=== PATIENT | female | born 1985 | race American Indian/Alaskan Native ===

== ENCOUNTER 2017-09-26 11:38 | Emergency (ER) | payer OTHER ==
[2017-09-26 17:24] VITALS: BP 107/62; PULSE 92; RESP 18; TEMP 98.4; O2SAT 97
== END 2017-09-26 13:03 | disposition home or self-care (01) ==
LOC: C.EROB 11:38
DX: O26.892 Other specified pregnancy related conditions, second trimester (principal); R06.02 Shortness of breath; Z3A.24 24 weeks gestation of pregnancy

== ENCOUNTER 2017-11-21 18:59 | Emergency (ER) | payer OTHER ==
[2017-11-21 19:39] VITALS: BMI 29.2
[2017-11-21] MEDS ORDERED: Lactated Ringer's 1,000 ML IV ONE (19:39)
[2017-11-21 20:20] LABS: SQUAMOUS EPITHIAL 16 /hpf (0-5); URINE AMORPHOUS SEDIMENT OCC /ul (<OCC); URINE BACTERIA FEW (<OCC); URINE BILIRUBIN NEGATIVE (NEGATIVE); URINE BLOOD NEGATIVE (NEGATIVE); URINE CLARITY Hazy (Clear); URINE COLOR Yellow (YELLOW); URINE GLUCOSE (UA) NORMAL (Normal); URINE LEUKOCYTE ESTERASE 1+ Leu/uL (Negative); URINE NITRATE NEGATIVE (NEGATIVE); URINE PROTEIN NEGATIVE (NEGATIVE)
[2017-11-21] MEDS ORDERED: ceFAZolin IV 2 gm in Dextrose 2 GM/50 ML BAG IVPB ONE (20:45)
[2017-11-21] MEDS ORDERED: ceFAZolin IV 2 gm in Dextrose 2 GM/50 ML BAG IVPB SCH (21:00)
[2017-11-22 03:05] VITALS: BP 114/59; PULSE 95; RESP 20; TEMP 97.3
== END 2017-11-21 22:20 | disposition home or self-care (01) ==
LOC: C.EROB 18:59
DX: O47.03 False labor before 37 completed weeks of gestation, third trimester (principal); Z3A.32 32 weeks gestation of pregnancy
CPT/HCPCS: 81001; 96365; 99283; J0690; J7120

== ENCOUNTER 2017-12-25 07:08 | Inpatient (IN) | payer OTHER ==
--- NOTE | 2017-12-25 07:35 | OBHP ---
Datetime: 11/21/2017 19:42 IP Adm Impression: , intrauterine ; No Active Labor IP Chief Complaint Other: Abdominal tightening; LBP IP Admit Plan: Observation/Evaluation Admit Comment, IP Provider: This is a patient of Dr. Margaret Marroquin 32 y.o. , LMP 04/07/17, SALAZAR 01/12/18, EGA 32w 4d, c/o abdominal tightening "like menstrual cram ps", pain scale 8/10 at time of onset 1830 hours. States no pain/tightening now. (+)AFM; denies LOF, VB. Lst had sexual intercourse 3 nights ago. Caree: Dr. Marroquin; no issues to date. last vis it 2 weeks ago; next visit 11/26/17 P Ob: 2007, , female, 7 lb; [facility] [place]. No complications P [employer] W[employer]: 11 x monthly x 4. No h/o STIs/ abnormal Pap/ fibroids/ ovarian cysts PMH: denies PSH: denies NKDA Meds: PNV - QD Soc Hx: denies tobacco, illicit drug or EtOH use. Lives with FOB; together x 16 years. Currently, works part-time, [employer] ([employer]) Fam Hx: Both mother and father - both, unk cancer (patient was 10 and 11 y.o. when they pa ssed) P.E.: as above. WD in NAD; jumps/ startled with movement. Awake, alert, oriented to time, p erson and place Assessment: 32 y.o. P1, 32w 4d, uterine contractions. R/O UTI. Presumptive BV. Category 1 tracin g. Clinically stable. Plan: 1) U/A 2) IVFs 3) Metronidazole 500 mg p.o. x 1 dose 4) Observe - as per, and discussed with, Dr. Marroquin Addendum: patient feels better after IVFs. Clinically stable. Plan: 1) Discharge home 2) Keflex 500 mg 1 tab by mouth TID x 7 days 3) MetroGel 0.75% 1 appl pV QHS x 5 days 4) Follow up Dr. Marroquin 11/24/17 4) Reviewed S/S PTL Pelvic Type - PN: Adequate Extremities - PN: Normal Abdomen - PN: Normal Back - PN: Normal Breast - PN: Not Done Lungs - PN: Normal Heart - PN: Normal Thyroid - PN: Not Done Neurologic - PN: Normal HEENT - PN: Normal General - PN: Normal Presentation-Admit: Vertex FHR - Baseline A Provider: 135 Contraction Comments Provider: irregular, 5 - 20 minutes Comments, ACOG Physical Exam: Abdomen: Gravid. Soft. Non tender in all quadrants. Fundal height 33 cm Perineum: dry: SSE: moderate amount of white pasty, pungent vaginal discharge. No pooling All other systems reviewed and are negative Gestation - Est Wks by US: 32w 4d EGA AdmitDate IP: 32.4 Vital Signs Provider: Reviewed; Within Normal Limits IP Chief Complaint: Other NICHD Variability Prov Fetus A: Moderate 6-25bpm NICHD Accel Fetus A IP Provider: 15X15 FHR Category Provider Fetus A: Category I NICHD Decel Fetus A IP Provider: None Dilatation, Provider: 1-2 Effacement, Provider: 20 Station, Provider: high Genitourinary Exam: Abnormal DTRs - PN: Normal
[2017-12-25] MEDS: Lactated Ringer's 1,000 ML IV SCH (08:15)
[2017-12-25 08:43] LABS: BASO % 0.3 % (0.0-2.0); EOS % 0.7 % (0.0-4.0); HEMOGLOBIN 11.5 g/dL (11.0-16.0); LYMPH # 0.9 K/uL (1.0-4.3); LYMPH % 20.7 % (20.0-40.0); MEAN CELL VOLUME 94.8 fL (81.0-99.0); MEAN CORPUSCULAR HEMOGLOBIN 31.8 pg (27.0-31.0); MEAN CORPUSCULAR HGB CONC 33.5 g/dL (33.0-37.0); MEAN PLATELET VOLUME 8.3 fL (7.2-11.7); MONO # 0.5 K/uL (0.0-0.8); NEUT # 2.8 K/uL (1.8-7.0); NEUT % 66.3 % (50.0-75.0); NRBC % 0.2 % (0.0-2.0); RBC 3.61 Mil/uL (3.80-5.20); RED CELL DISTRIBUTION WIDTH 14.1 % (11.5-14.5); WHITE BLOOD COUNT 4.2 K/uL (4.8-10.8)
[2017-12-25 08:52] LABS: SQUAMOUS EPITHIAL < 1 /hpf (0-5); URINE BILIRUBIN NEGATIVE (NEGATIVE); URINE BLOOD NEGATIVE (NEGATIVE); URINE CLARITY Clear (Clear); URINE COLOR Straw (YELLOW); URINE GLUCOSE (UA) NORMAL (Normal); URINE LEUKOCYTE ESTERASE NEG Leu/uL (Negative); URINE NITRATE NEGATIVE (NEGATIVE); URINE PROTEIN NEGATIVE (NEGATIVE); URINE UROBILINOGEN NORMAL mg/dL (0.2-1.0)
[2017-12-25 09:01] LABS: ALBUMIN 3.4 g/dL (3.5-5.0); ALT/SGPT 26 U/L (9-52); AST/SGOT 23 U/L (14-36); BLOOD UREA NITROGEN 10 mg/dL (7-17); CALCIUM 9.2 mg/dl (8.6-10.4); GFR AFRICAN-AMERICAN > 60; GFR NON-AFRICAN AMERICAN > 60
--- NOTE | 2017-12-25 12:30 | OBADHP ---
Datetime: 12/25/2017 08:08 Admit Comment, IP Provider: Patient is a 32 year old at 37w3d SALAZAR 01/12/17 presents to L+D fo r contractions that started a few days ago however increasing intensty adn frquencysince this mornign every 5 min 05/05. . Offers no other complaints at this time. Endorses +FM, denies VB, LOF. Admits to having clear mucosy discharge. Issues: Denies; patient sees Dr Marroquin for care OB Hx: 1. 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 - 04/07/17 [place] - 11 x regular x 4 days Denies fibroids, ovarian cysts, STIs Denies hx of abnormal pap smears Allergies: NKDA Medications: PNV Medical Hx: Denies Surgical Hx: Denies Social Hx: Denies alcohol, tobacco, drug use Family Hx: Denies PE: See above A/P: 32 yo at 37w3d presents to L+D with contractions in labor -Stable, afebrile -CEFM and TOCO -Admission labs: CBC, CMP, T+S, UA -Lactated Ringers 125cc/hr -Diet: NPO -GBS negative - no antibiotics needed at this time -Anesthesia consulted as needed -Cytotec 25mcg PO x 1 dose -Anticipate vaginal delivery -Plan discussed with Dr Lopez Vivar DO PGY-1 pt seen adn examiend agree with above pain mangment Pelvic Type - PN: Adequate Extremities - PN: Normal Abdomen - PN: Normal Lungs - PN: Normal Heart - PN: Normal Neurologic - PN: Normal General - PN: Normal FHR - Baseline A Provider: 150 Membranes, Provider: Intact Comments, ACOG Physical Exam: VSS Gen: AAOx3 Abd: Soft, gravid Ext: No clubbing, cyanosis, edema IP Hx Assessment: The History has been Reviewed and is Current Vital Signs Provider: Reviewed IP Chief Complaint: Uterine contractions NICHD Variability Prov Fetus A: Moderate 6-25bpm NICHD Accel Fetus A IP Provider: 15X15 FHR Category Provider Fetus A: Category I NICHD Decel Fetus A IP Provider: None Dilatation, Provider: 3-4 Effacement, Provider: 70 Station, Provider: -2 EGA AdmitDate IP: 37.3 IP Adm Impression: Term, intrauterine IP Admit Plan: Admit to unit Datetime: 11/21/2017 19:42 IP Chief Complaint Other: Abdominal tightening; LBP Back - PN: Normal Breast - PN: Not Done Thyroid - PN: Not Done HEENT - PN: Normal Presentation-Admit: Vertex Contraction Comments Provider: irregular, 5 - 20 minutes Gestation - Est Wks by US: 32w 4d Genitourinary Exam: Abnormal DTRs - PN: Normal
[2017-12-25] MEDS ORDERED: Bupivacaine HCl 0.25% PF (10 ml) Inj ONE (14:10)
[2017-12-25] MEDS ORDERED: Bupivacaine HCl/FentaNYL Cit 100 ML EPI ONE ×2 (14:11→22:19)
--- NOTE | 2017-12-25 15:12 | OBPN ---
Datetime: 12/25/2017 15:09 IP Progress Impression: Normal progression of labor IP Informed Consent Obtain: Vaginal Delivery IP Procedures: Artificial ROM IP Progress Plan: Continue present management Membranes, Provider: Ruptured Amniotic Fluid Color, Provider: Clear Contraction Comments Provider: q 5 min FHR - Baseline A Provider: 150 Gestation - Est Wks by US: 37.3 Presentation-Admit: Vertex IP Progress Note Comment: pt ed andexamine d/co pain s/p epidural dnies lof, vb, +FM VSS V:E 4/70/-2 VTX AROM clear EFM: Radha I TOCO: q 5 min A/P P1 @ 37.3 wks GA in Active labor -s/p cyottoeck -s/p AROM -s/p Peidural -cont fritz and efm Vital Signs Provider: Within Normal Limits FHR Category Provider Fetus A: Category I NICHD Variability Prov Fetus A: Moderate 6-25bpm Dilatation, Provider: 4 Effacement, Provider: 70 Station, Provider: -2 NICHD Decel Fetus A IP Provider: None Datetime: 12/25/2017 08:08 NICHD Accel Fetus A IP Provider: 15X15
[2017-12-25] MEDS ORDERED: Oxytocin 30 UNIT 30 UNITS/500 ML BAG IV ONE (15:41)
[2017-12-25] MEDS ORDERED: Oxytocin 30 UNIT 30 UNITS/500 ML BAG IV SCH (16:00)
--- NOTE | 2017-12-26 04:35 | OBPN ---
Datetime: 12/26/2017 04:30 IP Progress Plan: Continue present management Membranes, Provider: Ruptured Contraction Comments Provider: q 2-3 min FHR - Baseline A Provider: 150 Gestation - Est Wks by US: 37.4 Presentation-Admit: Vertex IP Progress Note Comment: pt seen and examined and reports mild right groin discomfort, denies vb, + FM VS as above EMF: 150/mod carolin intermittetn variable/late decesl TOCO: q 2-3 min Pitocin: 20mu/min A/P P1 @ 37.4 wks GA with Cat II tracing -dc pitocin -ivh -left lateral decubitiu spstion -oxygen -reevluate NICHD Variability Prov Fetus A: Moderate 6-25bpm Dilatation, Provider: 6 Effacement, Provider: 90 Station, Provider: -1 NICHD Decel Fetus A IP Provider: Late
[2017-12-26] MEDS ORDERED: Sodium Citrate/Citric Acid 15 ml Sol PO STA (05:18)
[2017-12-26] MEDS ORDERED: cefOXitin 2 GM in Sodium Chloride 0.9% 100 ML IVPB ONE (05:19)
[2017-12-26] MEDS ORDERED: cefOXitin IV 2 gm in Saline 2 GM/50 ML BAG IVPB ONE (05:35)
[2017-12-26] MEDS ORDERED: Lidocaine 2% Inj (20ml) ONE ×2 (05:51→05:52)
[2017-12-26] MEDS ORDERED: Lidocaine 2% w Epi 1:100,000 Inj IJ ONE (05:51)
--- NOTE | 2017-12-26 05:53 | OBPN ---
Datetime: 12/26/2017 05:33 IP Progress Impression: Arrest of dilatation/descent; Non-reassuring heart rate IP Informed Consent Obtain: Section Delivery; Risks, Benefits and Alternatives Discussed IP Progress Plan: Continue present management Membranes, Provider: Ruptured Contraction Comments Provider: q 2-3 min FHR - Baseline A Provider: 150 Gestation - Est Wks by US: 37.4 IP Progress Note Comment: pt seen and examined, denies lof, vb, +FM Pt with intermeitten late decerlatins non mroved with resusuction Temp 100.1 VE: /-1 EMF: 150/mod carolin, itnermittent late decelrations with spontaous reuturn to baseline TOCO: q 2-3 min A/P @ 37.4 wks GA with arrest of diation, Cat II tracing -r/b/a/i of PLTCS not lmited ot bleeding, infection, low risk of injury to bowel, bladder or other orgnas dw pateitn -consent obtained -mefoxiitn 2gram iV -calcium carobonate -reglan -Or/Anesthesia awaer Vital Signs Provider: Reviewed Vital Signs Provider Details: Temp 100.1 NICHD Variability Prov Fetus A: Moderate 6-25bpm Dilatation, Provider: 6 Effacement, Provider: 90 Station, Provider: -1 NICHD Decel Fetus A IP Provider: Late
[2017-12-26] MEDS ORDERED: Lidocaine 2% MPF (5 ml) Inj ONE ×2 (05:54→05:55)
[2017-12-26] MEDS ORDERED: Morphine 1 mg/ml preservative-free Inj(Duramorph) ONE (06:00)
[2017-12-26] MEDS ORDERED: Oxycodone/Acetaminophen 5/325 mg Tab PO PRN (06:02)
[2017-12-26] MEDS: Lactated Ringer's 1,000 ML IV SCH (06:03)
--- NOTE | 2017-12-26 06:57 | PCM.SURG1 ---
Surgeon's Initial Post Op Note - Surgeon's Notes Surgeon: Margaret Marroquin MD Corporate Sales Representative: Darren Zeng MD Type of Anesthesia: Other Anesthesia Administered By: Dr Leger Pre-Operative Diagnosis: Non reassuring heart tracing, remote from deliveyr, arrest of dilation Operative Findings: live male lop postion tight nuchal x 1, normal appearing uteurs, tubes and ovaires bilaerlaly, 9, 9 weight of 8ls, pedistrician present for delivery. Dr Darren Zeng was surigcal assistan and was present for entire case adn essential in gainign etnry, retraction, expousre , holidng bladder blade, helping to deliver the infant, claoisng all layers and obtainign hemostaiss. Post-Operative Diagnosis: same as above Operation Performed: Primary low transverse cesearean section Specimen/Specimens Removed: placenta Estimated Blood Loss: EBL {In ML}: 800 Blood Products Given: N/A Drains Used: No Drains Post-Op Condition: Good Date of Surgery/Procedure: 12/26/17 Time of Surgery/Procedure: 06:30
--- NOTE | 2017-12-26 07:02 | OBDS ---
DELIVERY PERSONNEL Delivery Doctor: Octavio Marroquin MD Anesthesiologist: DR STREET MATERNAL INFORMATION Delivery Anesthesia: Epidural Estimated Blood Loss (ml): 800 Provider Comments: pltcs male , apgars 9,9 weigh tof 8blbs lot, tight nuchal x 1 ebl 800ml no coplicaiotns LABOR SUMMARY EDC: 01/12/2018 00:00 No. Babies in Womb: 1 Attempted: No Labor Anesthesia: Epidural LABOR INFORMATION Onset of Labor: 12/25/2017 14:00 Cervical Ripening Agents: Cytotec @ (Annotations: Cytotec 25mcg PO x 1 dose) Oxytocin: Augmentation Group B Beta Strep: Negative (Annotations: 12/15/17) Steroids Given: None Reason Steroids Not Administered: Not Applicable MEMBRANES Membranes Rupture Method: Artificial Rupture of Membranes: 12/25/2017 15:06 Amniotic Fluid Color: Clear Amniotic Fluid Amount: Moderate Amniotic Fluid Odor: Normal STAGES OF LABOR Total Time in Labor hrs: 16 Total Time in Labor min: 29 BABY A INFORMATION Method of Delivery: Born in Route : No : N/A Forceps: N/A Vacuum Extraction: N/A Shoulder Dystocia : No PRESENTATION/POSITION BABY A Presentation: Cephalic Cephalic Presentation: Vertex Vertex Position: Left Occipital Posterior Breech Presentation: N/A PLACENTA INFORMATION BABY A Placenta Delivery Time : 12/26/2017 06:29 Placenta Method of Delivery: Manual Removal Placenta Status: Delivered SCORES BABY A Heart Rate 1 min: >100 bpm Resp Effort 1 min: Good Cry Reflex Irritability 1 min: Cough or Sneeze or Pulls Away Muscle Tone 1 min: Active Motion Color 1 min: Body [place], Extremities Blue Resuscitation Effort 1 min: Tactile Stimulation SCORE 1 MIN: 9 Heart Rate 5 min: >100 bpm Resp Effort 5 min: Good Cry Reflex Irritability 5 min: Cough or Sneeze or Pulls Away Muscle Tone 5 min: Active Motion Color 5 min: Body [place], Extremities Blue Resuscitation Effort 5 min: Tactile Stimulation SCORE 5 MIN: 9 INFORMATION BABY A Gestational Age at Delivery: 37.4 Gestational Status: Term Outcome : Liveborn Infant Condition : Stable Infant Sex: Male IDENTIFICATION/MEDS BABY A ID Band Number: [id number] Sensor Applied: Yes Sensor Number: [id number] WEIGHT/LENGTH BABY A Infant Birthweight (gms): 3640 Weight (lb): 8 Weight (oz): 0 Infant Length Inches: 20.00 Length cms: 50.8 CORD INFORMATION BABY A No. Cord Vessels: 3 Nuchal Cord : Around Neck x1, Tight Cord Blood Taken: Yes Suction: Nose ASSESSMENT BABY A Transferred To: [facility]
[2017-12-26] MEDS: Simethicone 80 mg Chewtab PO SCH ×3 (11:00→18:50)
--- NOTE | 2017-12-26 17:35 | OP ---
PROCEDURE DATE: 12/25/2017 PREOPERATIVE DIAGNOSIS: Nonreassuring heart tracing remote from delivery, arrest of dilation. POSTOPERATIVE DIAGNOSIS: Nonreassuring heart tracing remote from delivery, arrest of dilation. OPERATIVE FINDINGS: Live male , LOP position, tight nuchal x1, normal-appearing uterus, tubes, and ovaries bilaterally. Apgars 9 and 9, weight of 8 pounds. Mall Manager present for delivery. Dr. Darren Zeng, the registered nurse surgical services was present for the entire case and was essential in gaining entry, retraction, exposure, holding the bladder blade, delivering the infant, closing all layers, hemostasis. OPERATION PERFORMED: Primary low transverse section. SURGEON: Margaret Marroquin MD. ODD JOB WORKER: Darren Zeng M.D. TYPE OF ANESTHESIA: Spinal. ANESTHESIA ADMINISTERED BY: . SPECIMEN REMOVED: Placenta. ESTIMATED BLOOD LOSS: 800 mL. BLOOD PRODUCTS: None. COMPLICATIONS: None. DESCRIPTION OF PROCEDURE: The patient was taken to the operating room where she had epidural anesthesia, once it was found to be adequate, the patient was placed on the operating table in the dorsal supine position. The patient was then prepped and draped in the usual sterile fashion. Time-out confirmed correct patient and correct procedure. The patient was given preoperative prophylactic antibiotic. A Pfannenstiel skin incision was made with a scalpel and carried down to the underlying layer of the fascia with the Bovie. The fascia was incised in the midline and the incision was extended laterally with the Bovie. The inferior aspect of the fascial incision was grasped, elevated with Ralf clamps, and the underlying rectus muscles dissected off bluntly. Attention was then turned to the inferior aspect in a similar fashion, was grasped, elevated with Ralf clamps, and the underlying rectus muscles were dissected off bluntly. The rectus muscles were then bluntly in the midline. The peritoneum was identified in the clear space. The incision was extended laterally and superiorly until there was good visualization of the bladder. The lower end of the [place] was then inserted. The lower uterine segment was incised in a transverse fashion and the uterine incision was extended laterally and bluntly. The surgeon's hand entered the uterine cavity. The baby was delivered in LOP presentation with a tight nuchal cord that was reduced, followed by the delivery of the shoulders, followed by delivery of the body. Both oral and nasal passages of the baby were bulb suctioned. Umbilical cord was clamped and cut. Baby was handed off to the awaiting county director welfare. Cord blood and cord gases were collected and sent x2. The placenta was then delivered manually. The uterus was exteriorized, cleared of clots and debris. The uterine incision was repaired with 0-Vicryl in a running continuous locked fashion. A second layer of the same suture was used to close the uterus in a running imbricated manner. There was good hemostasis at the uterine incision site. The uterus was returned to the abdomen. Paracolic gutters were cleared of all clots and debris. Good hemostasis at the uterine incision site. The peritoneum was reapproximated with 2-0 Chromic in running continuous fashion. The rectus was approximated with 2-0 Chromic in an interrupted manner. The fascia was reapproximated with 0 Vicryl in a running continuous fashion. Subcuticular layers were closed with 2-0 plain in an interrupted manner. The skin was reapproximated and closed with 4-0 Monocryl in a running subcuticular fashion. At the end of the procedure, all needles, sponge, and instrument counts were noted to be correct x2. The patient tolerated the procedure well and was transferred to the recovery room in stable condition. Margaret Marroquin MD
[2017-12-27] MEDS: Simethicone 80 mg Chewtab PO SCH ×5 (01:42→21:54)
[2017-12-27] MEDS: Oxycodone/Acetaminophen 5/325 mg Tab PO PRN ×4 (05:35→23:18)
[2017-12-27] MEDS ORDERED: Bisacodyl 5mg EC Tab PO ONE (06:03)
[2017-12-27 07:37] LABS: BASO % 0.4 % (0.0-2.0); EOS % 0.6 % (0.0-4.0); HEMOGLOBIN 10.1 g/dL (11.0-16.0); LYMPH # 0.6 K/uL (1.0-4.3); LYMPH % 9.3 % (20.0-40.0); MEAN CELL VOLUME 94.3 fL (81.0-99.0); MEAN CORPUSCULAR HEMOGLOBIN 32.4 pg (27.0-31.0); MEAN CORPUSCULAR HGB CONC 34.3 g/dL (33.0-37.0); MEAN PLATELET VOLUME 8.1 fL (7.2-11.7); MONO # 0.8 K/uL (0.0-0.8); MONO % 11.9 % (0.0-10.0); NEUT # 5.3 K/uL (1.8-7.0); NEUT % 77.8 % (50.0-75.0); PLATELET COUNT 192 K/uL (130-400); RBC 3.12 Mil/uL (3.80-5.20); RED CELL DISTRIBUTION WIDTH 14.1 % (11.5-14.5); WHITE BLOOD COUNT 6.7 K/uL (4.8-10.8)
[2017-12-27] MEDS ORDERED: Influenza Vaccine 60 mcg/0.5 mL SYR (4YR UP) IM ONE (08:38)
--- NOTE | 2017-12-27 09:34 | OBPPN ---
Datetime: 12/27/2017 09:32 PP Pain Prov: Within normal limits PP Nausea Prov: Denies PP Flatus Prov: Yes PP BM Prov: No PP Breasts Prov: Normal PP Heart Prov: Normal PP Lungs Prov: Normal PP Abdomen/Uterus Prov: Normal PP Lochia Prov: Normal PP Vulva/Perineum Prov: Normal PP CVA Tenderness Prov: Normal PP Extremities Prov: Normal PP C/S Incision Prov: Normal PP Progress Prov: Normal PP Comments Phys Exam Prov: incsiion c/d/i healing well PP Impression Prov: Normal progression; Endometritis PP Progress Note Prov: pt seen adn examiend, reprot pain over incsion controleld with emdciain. pt o ut of bed, not yet mabuaitn, passign flurts, tolerating regular diet VSS last temp eyat__ PE abovve A?p s/p PLTCS POD #1 with enoemtrii -antibios x 24 hour -cont pain maeng -advance diet -am, lags -cont current mangnet Vital Signs Provider PP: Reviewed; Within Normal Limits
[2017-12-27 09:41] LABS: ANISOCYTOSIS SLIGHT; BANDS 4 % (0-2); LARGE PLATELETS PRESENT; LYMPHOCYTE 11 % (20-40); MONOCYTE 12 % (0-10); NEUTROPHIL 73 % (50-75); PLATELET ESTIMATE NORMAL (NORMAL); TOTAL CELLS COUNTED 100
[2017-12-27 09:42] LABS: TOXIC GRANULATION PRESENT
[2017-12-28] MEDS: Oxycodone/Acetaminophen 5/325 mg Tab PO PRN (06:14)
[2017-12-28 07:34] VITALS: O2SAT 99
[2017-12-28] MEDS: Simethicone 80 mg Chewtab PO SCH ×4 (09:10→21:31)
--- NOTE | 2017-12-28 20:13 | OBPPN ---
Datetime: 12/28/2017 20:10 PP Pain Prov: Within normal limits PP Nausea Prov: Denies PP Flatus Prov: Yes PP BM Prov: Yes PP Breasts Prov: Normal PP Heart Prov: Normal PP Lungs Prov: Normal PP Abdomen/Uterus Prov: Normal PP Lochia Prov: Normal PP Vulva/Perineum Prov: Normal PP CVA Tenderness Prov: Normal PP Extremities Prov: Normal PP C/S Incision Prov: Normal PP Progress Prov: Normal PP Comments Phys Exam Prov: Incsion C/D/I PP Impression Prov: Normal progression PP Plan Prov: Continue present management PP Progress Note Prov: pt seen and examined and reports pain controlled. patien amabuitn, voiding, p assing flatus, toelratge regulard iet, ddnies any cp, sob, dizzyness, lightheadnss VSS PE above A/P s/p PLTCS POD #2 doing well -s/p antibiocs x 24 hour, afebrile -cont pain managment -ergular diet -anticpate dc in am -am, lags -cont current mangnet Vital Signs Provider PP: Reviewed; Within Normal Limits
[2017-12-29] MEDS: Oxycodone/Acetaminophen 5/325 mg Tab PO PRN (02:06)
[2017-12-29 08:44] VITALS: BP 105/65; PULSE 89; RESP 18; TEMP 97.1
[2017-12-29] MEDS: Simethicone 80 mg Chewtab PO SCH (09:29)
--- NOTE | 2017-12-30 13:36 | OBDCSUM ---
Datetime: 12/29/2017 10:40 Discharge Instructions, Provider: Routine instructions given Discharge Diagnosis, Provider: Term Delivered Discharge Comment, Provider: f/u 1 week precauting iven Contraception after Delivery: Not Planning to Use
--- NOTE | 2017-12-30 13:36 | OBPPN ---
Datetime: 12/29/2017 13:34 PP Pain Prov: Within normal limits PP Nausea Prov: Denies PP Flatus Prov: Yes PP BM Prov: Yes PP Breasts Prov: Normal PP Heart Prov: Normal PP Lungs Prov: Normal PP Abdomen/Uterus Prov: Normal PP Lochia Prov: Normal PP Vulva/Perineum Prov: Normal PP CVA Tenderness Prov: Normal PP Extremities Prov: Normal PP C/S Incision Prov: Normal PP Progress Prov: Normal PP Comments Phys Exam Prov: incison c/d/ i PP Impression Prov: Normal progression PP Plan Prov: Continue present management; Discharge PP Progress Note Prov: delayed entry pt seen adn examiend and reprots pain cotnrolled, amubitnfg, voidign, passign flatus, lester fever, chils, naeu,v oitng cp, sob VSS PE see above A/P s/p PTLCS POD #3 dc home dc home rto 1 week Vital Signs Provider PP: Reviewed; Within Normal Limits
== END 2017-12-29 13:00 | disposition home or self-care (01) | DRG 370 ==
LOC: C.EROB 07:08 → UNDOADMIN 07:23 → C.4D 07:23 → C.4M 12-26 10:00
PROVIDERS: ADMIT Obstetrics & Gynecology; ATTEND Obstetrics & Gynecology
PROC: 10D00Z1 Extraction of Products of Conception, Low, Open Approach (ICD-10-PCS; principal; 2017-12-25)
DX: O75.3 Other infection during labor (principal); N39.0 Urinary tract infection, site not specified; O62.1 Secondary uterine inertia; O76 Abnormality in fetal heart rate and rhythm complicating labor and delivery; O69.1XX0 Labor and delivery complicated by cord around neck, with compression, not applicable or unspecified; Z3A.32 32 weeks gestation of pregnancy; Z37.0 Single live birth